=== PATIENT | male | born 1950 | race Caucasian/White ===

== ENCOUNTER 2017-05-10 14:40 | Inpatient (IN) | payer OTHER ==
[~2017-05-10] VITALS: Ht 185.4 cm; Wt 108.1 kg
[2017-05-10 15:02] LABS: POINT-OF-CARE METER ID UU13113702
[2017-05-10 15:48] LABS: HEMATOCRIT 39.7 % (38.0-50.0); MCHC 32.5 G/DL (30.0-36.0); MCV 79.9 FL (86-99); MEAN PLAT.VOLUME 10.6 uM^3 (9.0-12.4); PLATELET COUNT 333 K/uL (156-360); RBC DIS.WIDTH-CV 15.6 % (11.8-14.6); RBC DIS.WIDTH-SD 44.5 % (39-53); RED BLOOD COUNT 4.97 M/uL (4.00-5.50); WHITE BLOOD COUNT 18.6 K/uL (4.1-10.2)
[2017-05-10 15:53] LABS: INTER. NORMALIZED RATIO 1.1; PROTHROMBIN TIME 12.1 SEC (10.2-12.9)
[2017-05-10 15:56] LABS: PTT 23.9 SEC (25-37)
[2017-05-10 15:58] LABS: CHLORIDE 103 mEq/L (99-109); POTASSIUM 4.9 mEq/L (3.7-5.4); SODIUM 139 mEq/L (136-147)
[2017-05-10 16:00] LABS: GLUCOSE 204 mg/dL (70-99)
[2017-05-10 16:01] LABS: ANION GAP 14 MEQ/L (2-14)
[2017-05-10 16:04] LABS: GFR ESTIMATE (CALCULATED) 35 mL/min/; UREA NITROGEN (BUN) 40 mg/dL (9-23)
[2017-05-10 16:10] LABS: TROP-I INTERPRETATION NEGATIVE; TROPONIN-I 0.01 ng/mL (0.0-0.30)
[2017-05-10 18:20] LABS: TROP-I INTERPRETATION NEGATIVE; TROPONIN-I 0.07 ng/mL (0.0-0.30)
[2017-05-10] MEDS ORDERED: LO-DOSE ASPIRIN81 M2 PO (18:51)
[2017-05-10] MEDS ORDERED: ARTHROTEC 751 TABLET PO (18:51)
[2017-05-10] MEDS ORDERED: PERIDEX1 ML MM (18:52)
[2017-05-10] MEDS ORDERED: CIALIS20 MG PO (18:52)
[2017-05-10] MEDS ORDERED: CRESTOR10 MG PO (18:53)
[2017-05-10] MEDS ORDERED: GABAPENTIN300 MG PO ×2 (18:55→18:56)
[2017-05-10] MEDS ORDERED: HYDROCHLOROTHIA25 MG PO (19:00)
[2017-05-10] MEDS ORDERED: LOTREL 5/201 CAPSULE PO (19:01)
[2017-05-10] MEDS ORDERED: METFORMIN HCL1000 M3 PO (19:02)
[2017-05-10] MEDS ORDERED: STARLIX60 MG PO (19:02)
[2017-05-10] MEDS ORDERED: TEMAZEPAM30 MG PO (19:03)
[2017-05-10] MEDS ORDERED: PRILOSEC20 MG PO (19:03)
[2017-05-10] MEDS ORDERED: VICODIN 5-3001 EACH PO (19:04)
[2017-05-10] MEDS ORDERED: BASAGLAR K100 UNIT/1 SC (19:05)
[2017-05-10] MEDS ORDERED: VICTOZA0.6 MG/0.1 SC (19:05)
[2017-05-10 20:39] LABS: HEMATOCRIT 38.8 % (38.0-50.0); MCH 25.9 PG (29.0-34.0); MCHC 32.5 G/DL (30.0-36.0); MCV 79.7 FL (86-99); MEAN PLAT.VOLUME 10.9 uM^3 (9.0-12.4); PLATELET COUNT 361 K/uL (156-360); RBC DIS.WIDTH-CV 15.7 % (11.8-14.6); RBC DIS.WIDTH-SD 44.8 % (39-53); RED BLOOD COUNT 4.87 M/uL (4.00-5.50); WHITE BLOOD COUNT 15.8 K/uL (4.1-10.2)
[2017-05-10 20:54] LABS: MAGNESIUM 1.9 mg/dL (1.3-2.7)
[2017-05-10 20:58] LABS: ALKALINE PHOSPHATASE 74 IU/L (3-129); TOTAL BILIRUBIN 1.1 mg/dL (0.0-1.0)
[2017-05-10 21:00] VITALS: BP 170/79
[2017-05-10 23:11] LABS: POINT-OF-CARE METER ID UU13113803
[2017-05-10 23:51] VITALS: BP 155/65
[2017-05-11] VITALS (11 sets, daily range): BP systolic 119–162; BP diastolic 55–864
[2017-05-11 01:40] LABS: INTER. NORMALIZED RATIO 1.1; PROTHROMBIN TIME 11.8 SEC (10.2-12.9); TROP-I INTERPRETATION POSITIVE
[2017-05-11 01:43] LABS: PTT 42.3 SEC (25-37)
[2017-05-11 01:44] LABS: TROPONIN-I 3.98 ng/mL (0.0-0.30)
[2017-05-11 06:30] LABS: POINT-OF-CARE METER ID UU13113803
[2017-05-11 09:00] LABS: HEMATOCRIT 37.8 % (38.0-50.0); MCH 25.4 PG (29.0-34.0); MCHC 31.7 G/DL (30.0-36.0); MCV 79.9 FL (86-99); PLATELET COUNT 311 K/uL (156-360); RBC DIS.WIDTH-CV 15.6 % (11.8-14.6); RBC DIS.WIDTH-SD 44.8 % (39-53); RED BLOOD COUNT 4.73 M/uL (4.00-5.50); WHITE BLOOD COUNT 10.5 K/uL (4.1-10.2)
[2017-05-11 09:06] LABS: TROP-I INTERPRETATION POSITIVE
[2017-05-11 09:07] LABS: TROPONIN-I 9.64 ng/mL (0.0-0.30)
[2017-05-11 11:02] LABS: HDL CHOLESTEROL 35 MG/DL (Desirable>=40); LDL CHOLESTEROL 67 mg/dL (Desirable<100); NON-HDL CHOLESTEROL 86 mg/dL (Desirable<160); TOTAL CHOLESTEROL 121 mg/dL (Desirable<200); TRIGLYCERIDES 93 MG/DL (Normal: <150)
[2017-05-11 13:33] LABS: POINT-OF-CARE METER ID UU13113819
[2017-05-11 17:17] LABS: POINT-OF-CARE METER ID UU13113781; POINT-OF-CARE USER ID ENVKC36
[2017-05-11 21:15] LABS: POINT-OF-CARE METER ID UU13113781
[2017-05-12 03:27] VITALS: BP 144/65
[2017-05-12 03:39] LABS: CHLORIDE 104 mEq/L (99-109); POTASSIUM 4.4 mEq/L (3.7-5.4); SODIUM 135 mEq/L (136-147)
[2017-05-12 03:40] LABS: GLUCOSE 153 mg/dL (70-99)
[2017-05-12 03:42] LABS: ANION GAP 7 MEQ/L (2-14)
[2017-05-12 03:44] LABS: GFR ESTIMATE (CALCULATED) > 59 mL/min/
[2017-05-12 03:56] LABS: UREA NITROGEN (BUN) 20 mg/dL (9-23)
[2017-05-12 07:41] VITALS: BP 142/67
[2017-05-12] MEDS ORDERED: CLOPIDOGREL75 MG PO (11:15)
[2017-05-12] MEDS ORDERED: LOPRESSOR25 MG PO (11:16)
[2017-05-12] MEDS ORDERED: IMDUR30 MG PO (11:16)
[2017-05-12 11:25] VITALS: BP 141/63
[2017-05-12 11:39] LABS: POINT-OF-CARE METER ID UU13113698
== END 2017-05-12 13:21 | disposition home or self-care (01) | DRG 281 ==
LOC: EME 14:40 → EDOF 19:24 → 4EAST 19:24 → ENRESERV 19:25 → 4EAST 20:51
PROVIDERS: Emergency Medicine; Internal Medicine; Internal Medicine Cardiovascular Disease; Physician Assistant Medical
DX: I21.4 Non-ST elevation (NSTEMI) myocardial infarction (principal); N17.9 Acute kidney failure, unspecified; E11.65 Type 2 diabetes mellitus with hyperglycemia; K76.0 Fatty (change of) liver, not elsewhere classified; D72.829 Elevated white blood cell count, unspecified; Z79.4 Long term (current) use of insulin; E66.9 Obesity, unspecified; E78.5 Hyperlipidemia, unspecified; E86.0 Dehydration; G89.29 Other chronic pain; M54.5 Low back pain; I10 Essential (primary) hypertension; I25.110 Atherosclerotic heart disease of native coronary artery with unstable angina pectoris; I25.2 Old myocardial infarction; I49.3 Ventricular premature depolarization; M54.10 Radiculopathy, site unspecified; Z68.31 Body mass index [BMI] 31.0-31.9, adult; Z79.82 Long term (current) use of aspirin; Z79.899 Other long term (current) drug therapy; Z82.3 Family history of stroke; Z79.84 Long term (current) use of oral hypoglycemic drugs; R74.0 Nonspecific elevation of levels of transaminase and lactic acid dehydrogenase [LDH]; R79.89 Other specified abnormal findings of blood chemistry
CPT/HCPCS: 71020; 76705; 80048; 80053; 80061; 81003; 82948; 83735; 84484; 85027; 85347; 85610; 85730; 93005; 93306; 99281; 99285; C1750; C1769; C1887; J1644; J1815; J2250; J3010; J7030; J7040